=== PATIENT | male | born 1985 | race African-American/Black ===

== ENCOUNTER 2023-12-04 12:36 | Emergency (ER) | payer MEDICAID ==
[~2023-12-04] VITALS: Ht 172.7 cm; Wt 197.0 kg
[2023-12-04 12:47] VITALS: TEMP 98.4; O2SAT 97
[2023-12-04 13:38] LABS: EOSINOPHILS % 2.1 % (0.0-5.0); HEMATOCRIT. 39.4 % (42.0-52.0); HEMOGLOBIN. 12.5 g/dL (14.0-18.0); LYMPHOCYTES % 21.3 % (20.0-50.0); MEAN CORPUSCULAR HEMOGLOBIN 29.4 pg (28.0-32.0); MEAN CORPUSCULAR HGB CONC 31.7 g/dL (31.0-37.0); MEAN CORPUSCULAR VOLUME 92.9 fL (80.0-94.0); MEAN PLATELET VOLUME 8.2 fl (7.4-10.4); MONOCYTES % 6.6 % (2.0-8.0); PLATELET 316 x1000/uL (130-400); RED BLOOD CELL COUNT 4.25 mill/uL (4.7-6.1); RED CELL DISTRIBUTION WIDTH 15.4 % (11.6-14.6); WHITE BLOOD COUNT 9.8 x1000/uL (4.5-11.0)
[2023-12-04 13:56] LABS: ALANINE AMINOTRANSFERASE 9 IU/L (10-49); ASPARTATE AMINOTRANSFERASE 14 IU/L (<34); BILIRUBIN TOTAL 0.2 mg/dL (0.1-1.0); CALCIUM 9.5 mg/dL (8.7-10.4); CARBON DIOXIDE 27 mEq/L (21-32); CHLORIDE 104 mEq/L (98-107); CREATININE 0.7 mg/dL (0.6-1.3); GLUCOSE 90 mg/dL (70-105); POTASSIUM 4.2 mEq/L (3.5-5.1); PROTEIN TOTAL 7.8 g/dL (6.0-8.3); SODIUM 139 mEq/L (136-145); UREA NITROGEN BLOOD 14 mg/dL (9-23)
[2023-12-04 13:57] LABS: TROPONIN I HIGH SENSITIVITY < 4 ng/L (3.0-53)
[2023-12-04 15:01] VITALS: BP 128/80; PULSE 70; RESP 17
== END 2023-12-04 15:08 | disposition home or self-care (01) ==
LOC: ER 12:36
DX: R07.89 Other chest pain (principal); E78.00 Pure hypercholesterolemia, unspecified; Z98.890 Other specified postprocedural states; Z90.49 Acquired absence of other specified parts of digestive tract
CPT/HCPCS: 36415; 71045; 80053; 84484; 85025; 93005; 99285

== ENCOUNTER 2024-05-07 20:24 | Inpatient (IN) | payer SELFPAY ==
[~2024-05-07] VITALS: Ht 175.3 cm; Wt 197.8 kg
[~2024-05-07 20:24] MED LIST: AMOX1TAB16 MT
[2024-05-07 21:13] LABS: BASOPHILS % 0.6 % (0.0-2.0); EOSINOPHILS % 2.2 % (0.0-5.0); HEMATOCRIT. 36.4 % (42.0-52.0); HEMOGLOBIN. 11.9 g/dL (14.0-18.0); LYMPHOCYTES % 27.2 % (20.0-50.0); MEAN CORPUSCULAR HGB CONC 32.7 g/dL (31.0-37.0); MEAN CORPUSCULAR VOLUME 91.7 fL (80.0-94.0); MONOCYTES % 8.2 % (2.0-8.0); NEUTROPHILS % 61.8 % (40.0-76.0); PLATELET 319 x1000/uL (130-400); RED BLOOD CELL COUNT 3.97 mill/uL (4.7-6.1); RED CELL DISTRIBUTION WIDTH 15.4 % (11.6-14.6); WHITE BLOOD COUNT 9.1 x1000/uL (4.5-11.0)
[2024-05-07 21:16] LABS: CHLORIDE 103 mEq/L (98-107); POTASSIUM 3.8 mEq/L (3.5-5.1); SODIUM 138 mEq/L (136-145)
[2024-05-07 21:17] LABS: CARBON DIOXIDE 30 mEq/L (21-32)
[2024-05-07 21:18] LABS: CALCIUM 9.2 mg/dL (8.7-10.4)
[2024-05-07 21:22] LABS: CREATININE 0.7 mg/dL (0.6-1.3); GLUCOSE 98 mg/dL (70-105); UREA NITROGEN BLOOD 10 mg/dL (9-23)
[2024-05-07 21:24] LABS: ALANINE AMINOTRANSFERASE 13 IU/L (10-49); ALBUMIN 4.2 g/dL (3.2-4.8); ASPARTATE AMINOTRANSFERASE 15 IU/L (<34)
[2024-05-07 21:25] LABS: BILIRUBIN TOTAL 0.3 mg/dL (0.1-1.0); PROTEIN TOTAL 7.3 g/dL (6.0-8.3)
[2024-05-07 21:27] LABS: TROPONIN I HIGH SENSITIVITY < 4 ng/L (3.0-53)
[2024-05-07 23:56] LABS: CLARITY URINE CLEAR (CLEAR); COLOR URINE YELLOW (YELLOW); GLUCOSE URINE NEGATIVE (NEGATIVE); KETONES URINE NEGATIVE (NEGATIVE); LEUKOCYTE ESTERASE URINE NEGATIVE (NEGATIVE); NITRITE URINE NEGATIVE (NEGATIVE); OCCULT BLOOD URINE NEGATIVE (NEGATIVE); PH URINE 5.5 (4.5-8.0); PROTEIN URINE NEGATIVE (NEGATIVE); SPECIFIC GRAVITY URINE 1.021 (1.005-1.030); UROBILINOGEN URINE 0.2 E.U./dL (0.2-1.0)
[2024-05-08 01:19] LABS: TROPONIN I HIGH SENSITIVITY < 4 ng/L (3.0-53)
[2024-05-08 01:50] LABS: INR 0.9; PARTIAL THROMBOPLASTIN TIME 26.8 sec (23.4-31.0); PROTHROMBIN TIME 10.4 sec (9.6-11.0)
[2024-05-08 09:40] VITALS: BP 112/71; PULSE 71; RESP 20; TEMP 96.3
[2024-05-08 09:47] VITALS: BP 112/71; PULSE 66; RESP 18; TEMP 96.3
[2024-05-08 12:00] VITALS: BP 149/84; PULSE 68; RESP 19; TEMP 97.5
[2024-05-08] MEDS ORDERED: ACETAMINOPHEN 325MG TABLET PO PRN ×2 (13:00)
[2024-05-08] MEDS ORDERED: CLONIDINE 0.1MG TABLET PO PRN (13:00)
[2024-05-08] MEDS ORDERED: IPRATROPIUM/ALBUTEROL 0.5-3(2.5)MG/3ML NEB HHN PRN (13:00)
[2024-05-08] MEDS ORDERED: DEXTROSE 50% WATER 50ML SYRINGE IV PRN (13:00)
[2024-05-08] MEDS ORDERED: DOCUSATE SODIUM 100MG CAPSULE PO PRN (13:00)
[2024-05-08] MEDS ORDERED: ONDANSETRON HCL 4MG/2ML INJ IV PRN (13:00)
[2024-05-08] MEDS: ENOXAPARIN 40MG/0.4ML SYR SUBCUT SCH (15:10)
[2024-05-08 16:00] VITALS: BP 106/67; PULSE 82; RESP 19; TEMP 98.1
[2024-05-08 16:34] LABS: CLARITY URINE CLEAR (CLEAR); COLOR URINE YELLOW (YELLOW); GLUCOSE URINE NEGATIVE (NEGATIVE); KETONES URINE NEGATIVE (NEGATIVE); LEUKOCYTE ESTERASE URINE NEGATIVE (NEGATIVE); NITRITE URINE NEGATIVE (NEGATIVE); OCCULT BLOOD URINE NEGATIVE (NEGATIVE); PH URINE 5.5 (4.5-8.0); PROTEIN URINE NEGATIVE (NEGATIVE); SPECIFIC GRAVITY URINE 1.013 (1.005-1.030); UROBILINOGEN URINE 0.2 E.U./dL (0.2-1.0)
[2024-05-08 16:48] LABS: *AMPHETAMINES SCREEN URINE NEGATIVE (NEGATIVE); *BARBITURATES SCREEN URINE NEGATIVE (NEGATIVE); *BENZODIAZEPINES SCREEN URINE NEGATIVE (NEGATIVE); *COCAINE SCREEN URINE NEGATIVE (NEGATIVE); CANNABINOID URINE SCREEN NEGATIVE (NEGATIVE); ECSTASY MDMA SCREEN URINE NEGATIVE (NEGATIVE); METHADONE URINE SCREEN NEGATIVE (NEGATIVE); OPIATES URINE SCREEN NEGATIVE (NEGATIVE); PHENCYCLIDINE URINE SCREEN NEGATIVE (NEGATIVE)
[2024-05-08] MEDS: BLOOD SUGAR DIAGNOSTIC STRIP TEST SCH (17:10)
[2024-05-08] MEDS: INSULIN LISPRO 100 UNITS/ML SUBCUT SCH (17:27)
[2024-05-08 20:00] VITALS: BP 128/68; PULSE 78; RESP 19; TEMP 97.2
[2024-05-08 22:08] LABS: BASOPHILS % 0.9 % (0.0-2.0); HEMATOCRIT. 38.8 % (42.0-52.0); HEMOGLOBIN. 12.8 g/dL (14.0-18.0); LYMPHOCYTES % 24.1 % (20.0-50.0); MEAN CORPUSCULAR HEMOGLOBIN 30.2 pg (28.0-32.0); MEAN CORPUSCULAR VOLUME 91.5 fL (80.0-94.0); MEAN PLATELET VOLUME 8.1 fl (7.4-10.4); MONOCYTES % 5.5 % (2.0-8.0); NEUTROPHILS % 67.5 % (40.0-76.0); PLATELET 325 x1000/uL (130-400); RED BLOOD CELL COUNT 4.25 mill/uL (4.7-6.1); RED CELL DISTRIBUTION WIDTH 15.4 % (11.6-14.6); WHITE BLOOD COUNT 8.2 x1000/uL (4.5-11.0)
[2024-05-08 22:12] LABS: CHLORIDE 105 mEq/L (98-107); POTASSIUM 3.7 mEq/L (3.5-5.1); SODIUM 139 mEq/L (136-145)
[2024-05-08 22:13] LABS: CALCIUM 9.3 mg/dL (8.7-10.4); CARBON DIOXIDE 29 mEq/L (21-32)
[2024-05-08 22:18] LABS: CREATININE 0.7 mg/dL (0.6-1.3); GLUCOSE 94 mg/dL (70-105); TRIGLYCERIDE 198 mg/dL (0-150); UREA NITROGEN BLOOD 8 mg/dL (9-23)
[2024-05-08 22:19] LABS: LDL CHOLESTEROL 156 mg/dL (5-100)
[2024-05-08 22:19] LABS: CREATINE KINASE MB FRACTION 0.9 ng/mL (0.5-3.6)
[2024-05-08 22:20] LABS: ALANINE AMINOTRANSFERASE 14 IU/L (10-49); ALBUMIN 4.1 g/dL (3.2-4.8); ASPARTATE AMINOTRANSFERASE 16 IU/L (<34); CHOLESTEROL 213 mg/dL (<200); HDL CHOLESTEROL 41 mg/dL (>55)
[2024-05-08 22:21] LABS: CREATINE KINASE 359 IU/L (46-171); TROPONIN I HIGH SENSITIVITY < 4 ng/L (3.0-53)
[2024-05-08 22:21] LABS: BILIRUBIN DIRECT < 0.1 mg/dL (<=3.0); BILIRUBIN TOTAL 0.3 mg/dL (0.1-1.0); PROTEIN TOTAL 7.2 g/dL (6.0-8.3)
[2024-05-08 23:21] LABS: CREATINE KINASE MB FRACTION 1.2 ng/mL (0.5-3.6)
[2024-05-08 23:23] LABS: CREATINE KINASE 359 IU/L (46-171); TROPONIN I HIGH SENSITIVITY < 4 ng/L (3.0-53)
[2024-05-09] VITALS: BP 101/44; PULSE 85; RESP 16; TEMP 97.3
[2024-05-09 04:00] VITALS: BP 104/59; PULSE 81; RESP 17; TEMP 97.8
[2024-05-09 07:05] LABS: BASOPHILS % 0.2 % (0.0-2.0); CARBON DIOXIDE 30 mEq/L (21-32); CHLORIDE 105 mEq/L (98-107); EOSINOPHILS % 2.4 % (0.0-5.0); HEMATOCRIT. 35.8 % (42.0-52.0); HEMOGLOBIN. 12.1 g/dL (14.0-18.0); MEAN CORPUSCULAR HEMOGLOBIN 30.4 pg (28.0-32.0); MEAN CORPUSCULAR HGB CONC 33.9 g/dL (31.0-37.0); MEAN CORPUSCULAR VOLUME 89.7 fL (80.0-94.0); MEAN PLATELET VOLUME 8.5 fl (7.4-10.4); MONOCYTES % 6.5 % (2.0-8.0); NEUTROPHILS % 63.9 % (40.0-76.0); PLATELET 289 x1000/uL (130-400); POTASSIUM 3.9 mEq/L (3.5-5.1); RED BLOOD CELL COUNT 3.99 mill/uL (4.7-6.1); RED CELL DISTRIBUTION WIDTH 15.2 % (11.6-14.6); SODIUM 141 mEq/L (136-145); WHITE BLOOD COUNT 6.7 x1000/uL (4.5-11.0)
[2024-05-09 07:06] LABS: CALCIUM 9.1 mg/dL (8.7-10.4)
[2024-05-09 07:11] LABS: CREATININE 0.6 mg/dL (0.6-1.3); GLUCOSE 96 mg/dL (70-105); UREA NITROGEN BLOOD 10 mg/dL (9-23)
[2024-05-09 08:00] VITALS: BP 127/80; PULSE 75; RESP 20; TEMP 97.8
[2024-05-09] MEDS: PANTOPRAZOLE SODIUM 40 MG/VIAL IV SCH (08:18)
[2024-05-09 12:00] VITALS: BP 100/65; PULSE 75; RESP 22; TEMP 98
[2024-05-09 15:54] VITALS: BP 100/65; PULSE 75; TEMP 98; O2SAT 100
== END 2024-05-09 16:40 | disposition home or self-care (01) | DRG 54 ==
LOC: ER 20:24 → 8WST 05-08 04:44 → EDBEDREQ 05-08 04:45
PROVIDERS: ADMIT Internal Medicine; ATTEND Internal Medicine
DX: R51.9 Headache, unspecified (principal); Z68.44 Body mass index [BMI] 60.0-69.9, adult; D64.9 Anemia, unspecified; E66.01 Morbid (severe) obesity due to excess calories; E78.5 Hyperlipidemia, unspecified; R20.0 Anesthesia of skin; I10 Essential (primary) hypertension; R07.89 Other chest pain; Z98.84 Bariatric surgery status; Z79.899 Other long term (current) drug therapy
CPT/HCPCS: 36415; 71045; 78580; 80048; 80053; 80061; 80076; 80305; 81003; 82550; 82553; 82962; 83036; 84484; 85025; 85379; 93005; 93970; 99285; C9113; J1650